=== PATIENT | female | born 1965 | race African-American/Black ===

== ENCOUNTER 2018-12-08 07:39 | Outpatient (CLI) | payer MEDICARE, MEDICAID ==
[2018-12-08 10:31] LABS: Hemoglobin 12.1 g/dL (12.0-16.0); Mean Corpuscular HGB CONC 33.4 g/dL (32.0-36.0); Mean Corpuscular Hemoglobin 30.4 pg (27.0-31.0); Mean Corpuscular Volume 90.8 fL (78.0-98.0); Platelet Count 261 thou/uL (130-400); RBC Distribution Width 12.8 % (11.5-14.5); Red Blood Cell (RBC) Count 3.98 mill/uL (4.20-5.40); White Blood Cell (WBC) Count 6.1 thou/uL (4.8-10.8)
[2018-12-08 10:35] LABS: Prothrombin Time 13.4 SEC (12.0-14.7)
[2018-12-08 10:51] LABS: Anion Gap 12 mmol/L (10-20); BUN (Urea Nitrogen) 17 mg/dL (9.8-20.1); Calc. Creatinine Clearance 0 mL/min (70-130); Calcium 9.2 mg/dL (7.8-10.44); Carbon Dioxide 30 mmol/L (22-29); Chloride 102 mmol/L (98-107); Estimated GFR-MDRD 70; Glucose 119 mg/dL (70-105); Potassium 3.9 mmol/L (3.5-5.1); Sodium 140 mmol/L (136-145)
--- NOTE | 2018-12-08 17:07 | EKG ---
Test Reason : Blood Pressure : / mmHG Vent. Rate : 065 BPM Atrial Rate : 065 BPM P-R Int : 172 ms QRS Dur : 080 ms QT Int : 434 ms P-R-T Axes : 043 -09 -04 degrees QTc Int : 451 ms Normal sinus rhythm Nonspecific ST-T changes No previous ECGs available Confirmed by DR. Zarina HAAS (3) on 12/08/2018 5:07:18 PM Referred By: DA Confirmed By:DR. Zarina HAAS
== END 2018-12-08 07:40 | disposition home or self-care (01) ==
LOC: LABBT 07:39
PROVIDERS: ATTEND Orthopaedic Surgery
DX: Z01.818 Encounter for other preprocedural examination (principal); M16.11 Unilateral primary osteoarthritis, right hip
CPT/HCPCS: 80048; 85027; 85610; 87081; 93005; 93010

== ENCOUNTER 2018-12-08 13:30 | Inpatient (IN) | payer MEDICARE, MEDICAID ==
[2018-12-08 08:48] VITALS: BMI 55.2
[2018-12-13] MEDS ORDERED: Fentanyl 250 MCG/5 ML VIAL ONE (06:58)
[2018-12-13] MEDS ORDERED: Midazolam HCl 2 mg/2 ml Vial ONE (06:58)
[2018-12-13] MEDS ORDERED: Fentanyl 100 MCG/2 ML VIAL ONE (06:59)
[2018-12-13] MEDS ORDERED: Lidocaine 1% PF 5 ML VIAL ONE (07:01)
[2018-12-13] MEDS ORDERED: Lidocaine 1.5% w/Epi 1:200K 30 ML VIAL (Epid Use) ONE (07:01)
[2018-12-13] MEDS ORDERED: Dextrose 50% Abboject 50 ML SYRINGE ONE (07:05)
[2018-12-13] MEDS ORDERED: CEFAZOLIN 2 GM/50 ML BAG ONE ×2 (07:25→15:43)
[2018-12-13] MEDS ORDERED: Acetaminophen 1,000 MG in Premix Bag 1 BAG IVPB PRN ×2 (07:44→10:39)
[2018-12-13] MEDS ORDERED: Hydrocerin (Eucerin) Cream 120 gm Jar TOP PRN ×2 (07:45→10:45)
[2018-12-13] MEDS ORDERED: Promethazine HCl 25 MG SUPP PR PRN ×2 (07:45→10:45)
[2018-12-13] MEDS ORDERED: HYDROcodone/Acetaminophen 5/325 mg Tablet PO PRN ×4 (07:45→10:45)
[2018-12-13] MEDS ORDERED: Zolpidem Tartrate 5 MG TAB PO PRN ×3 (07:45→10:45)
[2018-12-13] MEDS ORDERED: Promethazine HCl 25 MG/ML VIAL IM PRN ×4 (07:45→10:45)
[2018-12-13] MEDS ORDERED: Naloxone HCl 0.4 mg/ml Vial IV PRN ×2 (07:45→10:45)
[2018-12-13] MEDS ORDERED: Fentanyl/Bupivacaine 100 ML EPIDURAL SCH (07:45)
[2018-12-13] MEDS ORDERED: Naloxone HCl 0.4 mg/ml Vial IVP PRN ×2 (07:45→10:45)
[2018-12-13] MEDS ORDERED: diphenhydrAMINE 50 MG/ML VIAL IM PRN ×2 (07:45→10:45)
[2018-12-13] MEDS ORDERED: traMADol HCl 50 MG TAB PO PRN ×4 (07:45→10:45)
[2018-12-13] MEDS ORDERED: diphenhydrAMINE 25 MG CAP PO PRN ×3 (07:45→10:45)
[2018-12-13] MEDS ORDERED: diphenhydrAMINE 50 MG/ML VIAL IVP PRN ×2 (07:45→10:45)
[2018-12-13] MEDS ORDERED: Ondansetron PF 4 MG/2 ML Vial IVP PRN ×3 (07:45→10:45)
[2018-12-13] MEDS ORDERED: Neomycin-Polymyxin 1 ML AMP ONE (08:14)
[2018-12-13] MEDS ORDERED: Ondansetron HCl/PF 4 MG/2 ML Vial IVP PRN (08:47)
[2018-12-13] MEDS ORDERED: Ketorolac Tromethamine 30 MG/ML VIAL IVP PRN (08:47)
[2018-12-13] MEDS ORDERED: Meperidine HCl/PF 25 MG/ML VIAL SLOW IVP PRN (08:47)
[2018-12-13] MEDS ORDERED: Acetaminophen 325 MG TAB PO PRN (10:05)
[2018-12-13] MEDS ORDERED: HYDROcodone/Acetaminophen 10/325 mg Tablet PO PRN ×2 (10:05)
[2018-12-13] MEDS ORDERED: Morphine 4 MG/ML VIAL SLOW IVP PRN (10:05)
[2018-12-13] MEDS ORDERED: CEFAZOLIN/Water 2 GM/20 ML SYRINGE SLOW IVP SCH (10:15)
[2018-12-13] MEDS ORDERED: Bupivacaine 0.25% 10 ML VIAL EPIDURAL PRN (10:45)
--- NOTE | 2018-12-13 11:46 | OP ---
DATE OF PROCEDURE: 12/13/2018 PREOPERATIVE DIAGNOSIS: Severe arthritis, right hip. POSTOPERATIVE DIAGNOSIS: Severe arthritis, right hip. PROCEDURE PERFORMED: Right total hip replacement. ANESTHESIA: General. TECHNIQUE: The patient was given preoperative IV antibiotics, taken to the operating room, placed in supine position. Satisfactory general anesthesia was performed. The patient was then placed in the left lateral decubitus position. All bony prominences were well padded. The right hip and lower extremity were sterilely prepped and draped in usual fashion. Longitudinal incision was made centered over the greater trochanter, and an anterior lateral approach was made to the hip joint. The anterior capsule was excised. There was some loose fragments of bone that were removed. The hip was noted to be very arthritic. It was dislocated and the femoral head was removed. It was devoid of any articular cartilage and was severely deformed. The labrum was excised circumferentially from the glenoid and the acetabulum was then sequentially reamed up to 54 mm. A DePuy pinnacle 56 mm acetabular shell was then impacted into place and two 6.5 cancellous bone screws were used for additional stability of the acetabulum. A 10-degree acetabular liner was impacted and locked into the acetabular shell. Attention was then turned to the proximal femur, where a box osteotome was used, then a hand Charnley reamer and then it was sequentially reamed into the canal up to a 12 and then sequentially rasped up to a 12. Trials were inserted and the patient had excellent stability and good range of motion with the 36-mm femoral head, +1.5 neck. The trials were removed. The hip joint was copiously irrigated with antibiotic solution using the high-speed logistics clerk and the prosthesis was then inserted. The Corail cementless size 12 femoral stem was impacted into the proximal femur and the +1.5 neck with a 36 mm head was placed over the proximal femur and was then reduced. The hip was placed through range of motion, it was very stable. The wound again was then copiously irrigated with antibiotic solution using the high-speed logistics clerk and was closed using #2 Vicryl for the anterior abductor muscles, #2 Vicryl for the iliotibial band, 0 Vicryl for the fat and subcutaneous tissue, and the skin was closed with skin alannah. Sterile dressing was applied. The patient was placed in the supine position. She was awakened, extubated, and transferred to recovery room in stable condition. ESTIMATED BLOOD LOSS: 300 mL. COMPLICATIONS: None. Job ID: [id number]
[2018-12-13] MEDS ORDERED: Ketorolac Tromethamine 30 MG/ML VIAL IVP SCH (12:00)
--- NOTE | 2018-12-13 12:15 | RAD ---
TWO VIEWS RIGHT HIP: Date: 12-13-18 History: Right total hip replacement. Comparison: None available. FINDINGS: Post-surgical changes related to right total hip prosthesis are noted. Two screws are within the acet abular component. The most lateral screw appears to be just lateral to the lateral cortex of the righ t iliac bone. There is otherwise no hardware complication seen. No fracture is identified. There is n o evidence of dislocation. Surgical clips are seen lateral to the right hip. There is subcutaneous em physema related to post-surgical changes. IMPRESSION: Post-surgical change related to right total hip prosthesis. The most lateral screw extends just later al to the lateral cortex of the right iliac bone. This finding was discussed with the ordering physic yenni on 12-13-18 at 1047 hours. POS: SIRISHA
[2018-12-13] MEDS ORDERED: Succinylcholine Chloride 20 MG/ML 10 ml SYRINGE FS ONE (13:45)
[2018-12-13] MEDS ORDERED: Rocuronium Bromide 10 MG/ML (10ML VIAL) ONE (13:45)
[2018-12-13] MEDS ORDERED: PROPOFOL 200 MG/20 ML VIAL ONE (13:45)
[2018-12-13] MEDS ORDERED: ePHEDrine/0.9% NaCl/PF SYRINGE 50 mg/10 ml ONE (13:45)
[2018-12-13] MEDS ORDERED: Ondansetron PF 4 MG/2 ML Vial ONE (13:45)
[2018-12-13] MEDS ORDERED: Ketorolac Tromethamine 30 MG/ML VIAL ONE (14:13)
[2018-12-13] MEDS: Ketorolac Tromethamine 30 MG/ML VIAL IVP SCH ×2 (17:24→17:57)
[2018-12-13] MEDS: metFORMIN 500 MG TAB PO SCH (17:57)
[2018-12-13] MEDS: CEFAZOLIN 2 GM/50 ML-DEXTROSE 2 GM in Premix Bag 1 BAG IVPB SCH (17:57)
[2018-12-13] MEDS ORDERED: Dextrose 5% in Water 1,000 ML IV PRN (18:16)
[2018-12-13] MEDS ORDERED: HumaLOG 300 UNITS/3 ML VIAL SC PRN ×2 (18:16)
[2018-12-13] MEDS ORDERED: Dextrose 50% Abboject 50 ML SYRINGE SLOW IVP PRN (18:16)
[2018-12-13] MEDS ORDERED: Sodium Chloride 0.9% 500 ML IVPB SCH (20:15)
[2018-12-13] MEDS: Aspirin 81 mg Enteric Coated Tablet PO SCH (20:49)
[2018-12-13] MEDS: Atorvastatin Calcium 10 MG TAB PO SCH (20:49)
[2018-12-13] MEDS: Insulin Glargine 45 UNITS in Pre-Filled Syringe 1 EACH SC SCH (20:51)
[2018-12-13] MEDS: Metoprolol Tartrate 25 MG TAB PO SCH (20:52)
[2018-12-13] MEDS ORDERED: Non-Formulary Item 1 EACH (Insulin Glargine,Hum.Rec.Anlog [Lantus Solostar] 45 UNIT) SQ SCH (21:00)
[2018-12-13] MEDS ORDERED: Sodium Chloride 0.9% 1,000 ML IV SCH (23:45)
[2018-12-14] MEDS: CEFAZOLIN 2 GM/50 ML-DEXTROSE 2 GM in Premix Bag 1 BAG IVPB SCH (00:08)
[2018-12-14] MEDS: Ketorolac Tromethamine 30 MG/ML VIAL IVP SCH ×4 (00:09→17:02)
[2018-12-14] MEDS: Fentanyl/Bupivacaine 100 ML EPIDURAL SCH ×2 (00:13→14:50)
[2018-12-14 00:16] LABS: #Basophils 0.1 thou/uL (0.0-0.2); #Eosinphils 0.1 thou/uL (0.0-0.7); #Lymphocytes 2.6 thou/uL (1.20-3.40); #Monocytes 0.9 thou/uL (0.11-0.59); #Neutrophils 3.5 thou/uL (1.40-6.50); %Basophils 0.8 % (0.0-1.0); %Eosinophils 1.4 % (0.0-10.0); %Lymphocytes 36.8 % (21.0-51.0); %Monocytes 12.2 % (0.0-10.0); %Neutrophils 48.7 % (42.0-75.0); Mean Corpuscular HGB CONC 32.8 g/dL (32.0-36.0); Mean Corpuscular Hemoglobin 30.4 pg (27.0-31.0); Mean Corpuscular Volume 92.6 fL (78.0-98.0); Platelet Count 194 thou/uL (130-400); Red Blood Cell (RBC) Count 2.95 mill/uL (4.20-5.40); White Blood Cell (WBC) Count 7.1 thou/uL (4.8-10.8)
[2018-12-14 00:35] LABS: Anion Gap 10 mmol/L (10-20); BUN (Urea Nitrogen) 14 mg/dL (9.8-20.1); Calc. Creatinine Clearance 157 mL/min (70-130); Calcium 7.8 mg/dL (7.8-10.44); Carbon Dioxide 26 mmol/L (22-29); Chloride 101 mmol/L (98-107); Estimated GFR-MDRD 70; Glucose 100 mg/dL (70-105); Potassium 3.7 mmol/L (3.5-5.1); Sodium 133 mmol/L (136-145)
--- NOTE | 2018-12-14 01:13 | CON ---
DATE OF CONSULTATION: PRIMARY CARE PHYSICIAN: Seen by Rosario Palacios Advanced Nurse Practitioner in [place], [place]. . PRIMARY TEAM: Orthopedics, Dr. Reddy. REASON FOR CONSULTATION: Medical management. HISTORY OF PRESENT ILLNESS: This is a 53-year-old Afro-[place] female with a history of severe right hip arthritis, who comes in for total hip replacement. She had that done earlier today and is doing well postoperatively. The patient has no complaints. She is accompanied by her sister, Carie and Cedrick in the room. PAST MEDICAL HISTORY: 1. Adult onset diabetes mellitus, insulin dependent. 2. Hypertension. 3. Hyperlipidemia. 4. Paroxysmal SVT, last episode in 2009. 5. Previous renal failure, resolved. 6. Leaky heart valve. PAST SURGICAL HISTORY: 1. Hysterectomy. 2. Left ankle surgery. PSYCHIATRIC HISTORY: Schizophrenia. SOCIAL HISTORY: The patient is disabled. She does have some impairment of her mental functions. She lives in a fci. Her siblings are her bazzi of check weigher and help her to make her medical decisions. FAMILY HISTORY: Dad with hypertension and ruptured cerebral aneurysm. Mother is of a cerebral aneurysm. Multiple family members with hypertension and diabetes. ALLERGIES: NO KNOWN DRUG ALLERGIES. CURRENT MEDICATIONS: 1. Abilify 10 mg daily. 2. Cetirizine 10 mg daily. 3. Vitamin D3 1000 units daily. 4. Escitalopram oxalate 20 mg daily. 5. Lantus 45 units each night. 6. Metformin 500 mg twice a day. 7. Metoprolol tartrate 25 mg at night and 50 mg in the morning. 8. Potassium chloride 8 mEq daily. 9. Pravastatin 40 mg at night. REVIEW OF SYSTEMS: CONSTITUTIONAL: No fevers, no chills. EYES: No double vision or blurred vision. ENT: No congestion, drainage, or sore throat. PULMONARY: No coughing or wheezing. CARDIOVASCULAR: No chest pain or palpitations. GASTROINTESTINAL: No abdominal pain. No nausea or vomiting. No diarrhea or constipation. GENITOURINARY: No dysuria or hematuria. MUSCULOSKELETAL: No muscle aches or joint pains. She did have the right hip replacement and is doing well postoperatively from that. SKIN: No rashes or lesions noted. NEUROLOGIC: No numbness, tingling, or focal weakness. PHYSICAL EXAMINATION: VITAL SIGNS: Blood pressure 125/84, pulse 66, respirations 20, O2 saturation 96% on 2 L, temperature 98.3. GENERAL: This is a well-developed, obese female, in no acute distress. HEENT: Pupils are equal, round, and reactive to light. Oropharynx clear without lesions, erythema, or exudate. NECK: Supple. No lymphadenopathy. No thyroid nodules or enlargement. No JVD. HEART: Regular rate and rhythm. No murmurs, rubs, or gallops. LUNGS: Clear to auscultation bilaterally. No wheezes, crackles, or rhonchi. ABDOMEN: Soft, obese, nontender to palpation. Normoactive bowel sounds. No hepatosplenomegaly or other masses. EXTREMITIES: No clubbing, cyanosis, or edema. She has a postoperative dressing over her right hip. SKIN: No rashes or lesions noted. NEUROLOGIC: She is able to move all extremities equally and has no facial droop. LABORATORY DATA: CBC within normal limits. Coagulation profile normal. Complete metabolic panel is notable only for a carbon dioxide of 30 and a glucose of 119. ASSESSMENT: 1. Severe right hip arthritis status post right total hip replacement. 2. Diabetes mellitus type 2, insulin dependent. We will resume patient's Lantus, check fingerstick blood sugars q.a.c. and h.s., and give a moderate insulin sliding scale. 3. Hypertension. We will resume the patient's home medications. 4. Paroxysmal supraventricular tachycardia. We will resume the patient's metoprolol and monitor for vital signs abnormality. 5. Hyperlipidemia. We will resume the patient's statin. 6. Schizophrenia. We will resume patient's home medication. 7. Deep venous thrombosis prophylaxis. SCDs to bilateral lower extremities. CODE STATUS: The patient is a full code. Should she be incapacitated, her medical decision maker is Carie Hardin, her sister. Job ID: [id number]
[2018-12-14 07:25] LABS: Hemoglobin 8.6 g/dL (12.0-16.0); Mean Corpuscular Hemoglobin 30.6 pg (27.0-31.0); Mean Corpuscular Volume 92.6 fL (78.0-98.0); Mean Platelet Volume 8.8 fL (7.4-10.4); Platelet Count 192 thou/uL (130-400); Red Blood Cell (RBC) Count 2.81 mill/uL (4.20-5.40); White Blood Cell (WBC) Count 6.5 thou/uL (4.8-10.8)
[2018-12-14] MEDS: Potassium Chloride 8 MEQ TAB PO SCH (08:21)
[2018-12-14] MEDS: Senokot S 8.6-50 MG TAB PO SCH ×2 (08:21→21:15)
[2018-12-14] MEDS: Aripiprazole 10 MG TAB PO SCH (08:21)
[2018-12-14] MEDS: Loratadine 10 MG TAB PO SCH (08:22)
[2018-12-14] MEDS: Ferrous Gluconate 324 MG TAB PO SCH ×2 (08:22→17:01)
[2018-12-14] MEDS: Multivitamin W/ Minerals 1 TAB PO SCH (08:22)
[2018-12-14] MEDS: metFORMIN 500 MG TAB PO SCH ×2 (08:22→17:01)
[2018-12-14] MEDS: Escitalopram Oxalate 20 mg Tablet PO SCH (08:22)
[2018-12-14] MEDS: Metoprolol Tartrate 50 MG TAB PO SCH (08:25)
[2018-12-14] MEDS: Aspirin 81 mg Enteric Coated Tablet PO SCH ×2 (09:22→21:15)
--- NOTE | 2018-12-14 15:22 | PDOC.PN ---
- Subjective Encounter Start Date: 12/14/18 Encounter Start Time: 09:00 Pt seen for followup re: dm2. Says she feels well, no complaints today. - Objective Resuscitation Status - Order Detail: 12/13/18 18:17 Resuscitation Status Routine Resuscitation Status: FULL: Full Resuscitation MAR Reviewed: Yes Vital Signs & Weight: Vital Signs (12 hours) Temp Pulse Resp BP BP BP BP 12/14/18 10:23 98.1 F 71 18 88/61 L 12/14/18 08:55 96/59 L 12/14/18 08:45 12/14/18 08:00 12/14/18 07:23 98.5 F 65 18 96/60 12/14/18 07:12 12/14/18 06:02 92/58 L 12/14/18 04:09 98.9 F 70 18 102/63 Pulse Ox Pulse Ox 12/14/18 10:23 96 12/14/18 08:55 93 L 12/14/18 08:45 93 L 12/14/18 08:00 98 12/14/18 07:23 98 12/14/18 07:12 96 12/14/18 06:02 12/14/18 04:09 96 Weight Admit Weight 342 lb Weight 342 lb I&O: 12/13/18 12/14/18 12/15/18 06:59 06:59 06:59 Intake Total 3915 Output Total 1350 Balance 2565 Result Diagrams: 12/14/18 06:07 12/14/18 00:07 Additional Labs: Accuchecks 12/14/18 12/14/18 12/13/18 10:21 05:57 20:47 POC Glucose 112 H 72 129 H 12/13/18 17:16 POC Glucose 70 labs reviewed by me Phys Exam - Physical Examination Morbid obesity HEENT: moist MMs Neck: supple Respiratory: clear to auscultation bilateral Cardiovascular: RRR Gastrointestinal: soft s/p R hip surgery Neurological: moves all 4 limbs Psychiatric: normal affect Dx/Plan (1) DM2 (diabetes mellitus, type 2) Status: Chronic Comment: controlled (2) HTN (hypertension) Code(s): I10 - ESSENTIAL (PRIMARY) HYPERTENSION Status: Chronic Comment: Pt' s blood pressure is low. Hold antihypertensives. (3) Mild depression Code(s): F32.0 - MAJOR DEPRESSIVE DISORDER, SINGLE EPISODE, MILD Status: Chronic Comment: stable - Plan * . Review of Systems - Review of Systems Cardiovascular: negative: chest pain, palpitations, orthopnea, paroxysmal nocturnal dyspnea, edema, light headedness Gastrointestinal: negative: Nausea, Vomiting, Abdominal Pain, Diarrhea, Constipation, Melena, Hematochezia - Medications/Allergies Allergies/Adverse Reactions: Allergies Allergy/AdvReac Type Severity Reaction Status Date / Time No Known Allergies Allergy Unverified 12/08/18 08:49 Medications: Current Medications Acetaminophen (Tylenol) 650 mg PO Q4H PRN PRN Reason: Headache/Fever or Pain Hydrocodone Bitart/Acetaminophen (Lorain 5/325) 1 tab PO Q4H PRN PRN Reason: Mild Pain 0-3 Hydrocodone Bitart/Acetaminophen (Lorain 5/325) 2 tab PO Q4H PRN PRN Reason: For Moderate Pain 4-6 Aripiprazole (Abilify) [address] [facility] Last Admin: 12/14/18 08:21 Dose: 10 mg Aspirin (Ecotrin) 81 mg PO BID [facility] Last Admin: 12/14/18 09:22 Dose: 81 mg Atorvastatin Calcium (Lipitor) 10 mg PO [facility] Last Admin: 12/13/18 20:49 Dose: 10 mg Cholecalciferol (Vitamin D3) 1,000 units PO DAILY [facility] Last Admin: 12/14/18 08:21 Dose: 1,000 units Dextrose/Water (Dextrose 50%) 25 gm SLOW IVP PRN PRN PRN Reason: Hypoglycemia Diphenhydramine HCl (Benadryl) 25 mg PO Q3H PRN PRN Reason: Itching Last Admin: 12/13/18 17:57 Dose: 25 mg Diphenhydramine HCl (Benadryl) 25 mg IM Q3H PRN PRN Reason: Itching Diphenhydramine HCl (Benadryl) 25 mg IVP Q3H PRN PRN Reason: Itching Emollient Cream (Hydrocerin Cream) 0 gm TOP PRN PRN PRN Reason: Itching [facility]italopram [facility] ([facility]ro) [facility] Last Admin: 12/14/18 08:22 Dose: 20 mg Ferrous [facility]) [facility] Last Admin: 12/14/18 08:22 Dose: 324 mg Glucagon (Glucagon) 1 mg IM PRN PRN PRN Reason: Hypoglycemia Fentanyl Citrate (Fentanyl/Bupivacaine) 100 mls @ 0 mls/hr EPIDURAL INF [facility] Last Admin: 12/14/18 14:50 Dose: 100 mls Insulin Glargine 45 units/ (Miscellaneous Medication) 0.45 mls @ 0 mls/hr SC QPM [facility] Last Admin: 12/13/18 20:51 Dose: Not Given Dextrose/Water (D5w) 1,000 mls @ 0 mls/hr IV .Q0M PRN PRN Reason: Hypoglycemia Insulin Human Lispro (Humalog) 0 units SC .MODERATE SLIDING SC PRN PRN Reason: Moderate Correctional Scale Insulin Human Lispro (Humalog) 0 units SC .BEDTIME SLIDING SC PRN PRN Reason: Bedtime Correctional Scale Iron/Minerals/Multivitamins (Theragran M) 1 tab PO DAILY [facility] Last Admin: 12/14/18 08:22 Dose: 1 tab Ketorolac Tromethamine (Toradol) 30 mg IVP Q6HR [facility] Stop: 12/15/18 06:01 Last Admin: 12/14/18 11:44 Dose: 30 mg Loratadine (Claritin) 10 mg PO DAILY [facility] Last Admin: 12/14/18 08:22 Dose: 10 mg Metformin HCl (Glucophage) 500 mg PO BID-[facility] Last Admin: 12/14/18 08:22 Dose: 500 mg Metoprolol Tartrate (Lopressor) 25 mg PO [facility] Last Admin: 12/13/18 20:52 Dose: Not Given Metoprolol Tartrate (Lopressor) [address] [facility] Last Admin: 12/14/18 08:25 Dose: Not Given Miscellaneous Information (Communication Order-Pharmacy) 1 each FS ASDIR [facility] Naloxone HCl (Narcan) 0.2 mg IV Q5MIN PRN PRN Reason: RR <=8 OR OBTUNDED/UNAROUSABLE Naloxone HCl (Narcan) 0.1 mg IVP Q15MIN PRN PRN Reason: URINARY RETENTION Ondansetron HCl (Zofran) 4 mg IVP Q6H PRN PRN Reason: Nausea/Vomiting Potassium Chloride (Slow-K 8 Meq) 8 meq PO QAM-[facility] Last Admin: 12/14/18 08:21 Dose: 8 meq Promethazine HCl (Phenergan) 12.5 mg IM Q4H PRN PRN Reason: Nausea/Vomiting Promethazine HCl (Phenergan Suppository) 25 mg AR Q4H PRN PRN Reason: Nausea/Vomiting Senna/Docusate Sodium (Senokot S) 2 tab PO BID [facility] Last Admin: 12/14/18 08:21 Dose: 2 tab Sodium Chloride (Flush - Normal Saline) 10 ml IVF PRN PRN PRN Reason: Saline Flush Tramadol HCl (Ultram) 50 mg PO Q6H PRN PRN Reason: Mild Pain 1-3 Tramadol HCl (Ultram) 100 mg PO Q6H PRN PRN Reason: Moderate Pain 4-6 Zolpidem Tartrate (Ambien) 5 mg PO HSPRN PRN PRN Reason: Insomnia
[2018-12-14] MEDS: Atorvastatin Calcium 10 MG TAB PO SCH (21:15)
[2018-12-14] MEDS: Metoprolol Tartrate 25 MG TAB PO SCH (21:16)
[2018-12-14] MEDS: Insulin Glargine 45 UNITS in Pre-Filled Syringe 1 EACH SC SCH (21:26)
[2018-12-15] MEDS: Ketorolac Tromethamine 30 MG/ML VIAL IVP SCH ×2 (00:18→05:46)
--- NOTE | 2018-12-15 03:26 | PRG ---
DATE OF SERVICE: 12/14/2018 The patient is 1-day status post right total hip replacement. The patient's blood pressure was little low and she was bolused with fluids, which helped bring it out. She also had an episode where her O2 saturation was low last night, but this sosa up into the high 90s with incentive spirometry. The patient has been up with physical therapy and has been ambulating in the neal and is doing well with that. Vital signs, the patient has been afebrile. Pulse 65, respiratory rate 18, blood pressure 96/70, O2 saturation 98% on 2 L per nasal cannula. The patient's blood work shows hemoglobin 8.6, hematocrit 26. Her chemistries showed sodium of 133, which was mildly low. Rest of the values were normal. Glucose has been only slightly elevated with the last glucose 112. The patient is progressing with physical therapy well. She will continue increasing her activities as tolerated. The hospitalists have been monitoring her medical status as far as her diabetes and respiratory. She will continue to increase her activities as tolerated. Job ID: [id number]
[2018-12-15] MEDS: Fentanyl/Bupivacaine 100 ML EPIDURAL SCH (05:54)
[2018-12-15 07:32] LABS: Hemoglobin 7.7 g/dL (12.0-16.0); Mean Corpuscular HGB CONC 33.2 g/dL (32.0-36.0); Mean Corpuscular Hemoglobin 30.9 pg (27.0-31.0); Mean Corpuscular Volume 92.9 fL (78.0-98.0); Mean Platelet Volume 8.7 fL (7.4-10.4); Platelet Count 163 thou/uL (130-400); RBC Distribution Width 12.9 % (11.5-14.5); White Blood Cell (WBC) Count 7.6 thou/uL (4.8-10.8)
[2018-12-15] MEDS: Aspirin 81 mg Enteric Coated Tablet PO SCH (08:12)
[2018-12-15] MEDS: metFORMIN 500 MG TAB PO SCH ×2 (08:12→17:51)
[2018-12-15] MEDS: Ferrous Gluconate 324 MG TAB PO SCH ×2 (08:12→17:51)
[2018-12-15] MEDS: Escitalopram Oxalate 20 mg Tablet PO SCH (08:12)
[2018-12-15] MEDS: Aripiprazole 10 MG TAB PO SCH (08:12)
[2018-12-15] MEDS: Loratadine 10 MG TAB PO SCH (08:12)
[2018-12-15] MEDS: Multivitamin W/ Minerals 1 TAB PO SCH (08:12)
[2018-12-15] MEDS: Senokot S 8.6-50 MG TAB PO SCH (08:12)
[2018-12-15] MEDS: Metoprolol Tartrate 50 MG TAB PO SCH (09:43)
[2018-12-15] MEDS: Potassium Chloride 8 MEQ TAB PO SCH (09:44)
[2018-12-15] MEDS ORDERED: HYDROcodone/Acetaminophen 10/325 mg Tablet PO PRN ×2 (12:15)
--- NOTE | 2018-12-15 15:29 | PDOC.PN ---
- Subjective Encounter Start Date: 12/15/18 Encounter Start Time: 08:40 Pt seen for followup re: DM2. Feels well. - Objective Resuscitation Status - Order Detail: 12/13/18 18:17 Resuscitation Status Routine Resuscitation Status: FULL: Full Resuscitation MAR Reviewed: Yes Vital Signs & Weight: Vital Signs (12 hours) Temp Pulse Resp BP Pulse Ox 12/15/18 11:42 98.5 F 74 18 139/81 94 L 12/15/18 07:38 99.6 F 84 16 108/67 94 L 12/15/18 04:35 98.7 F 74 18 99/65 96 Weight Admit Weight 342 lb Weight 342 lb I&O: 12/14/18 12/15/18 12/16/18 06:59 06:59 06:59 Intake Total 3915 1318 Output Total 1350 2100 Balance 2565 -782 Result Diagrams: 12/15/18 07:04 12/14/18 00:07 Additional Labs: Accuchecks 12/15/18 12/14/18 05:51 16:09 POC Glucose 131 H 110 Labs reviewed by me Phys Exam - Physical Examination Constitutional: NAD HEENT: moist MMs Neck: supple Respiratory: clear to auscultation bilateral Cardiovascular: RRR Gastrointestinal: soft Neurological: moves all 4 limbs Psychiatric: normal affect Dx/Plan (1) DM2 (diabetes mellitus, type 2) Status: Chronic Comment: controlled, continue accuchecks and insulin sliding scale (2) HTN (hypertension) Code(s): I10 - ESSENTIAL (PRIMARY) HYPERTENSION Status: Chronic Comment: controlled (3) Mild depression Code(s): F32.0 - MAJOR DEPRESSIVE DISORDER, SINGLE EPISODE, MILD Status: Chronic Comment: stable - Plan * . Awaiting Rehab screen Review of Systems - Review of Systems Cardiovascular: negative: chest pain, palpitations, orthopnea, paroxysmal nocturnal dyspnea, edema, light headedness Gastrointestinal: negative: Nausea, Vomiting, Abdominal Pain, Diarrhea, Constipation, Melena, Hematochezia - Medications/Allergies Allergies/Adverse Reactions: Allergies Allergy/AdvReac Type Severity Reaction Status Date / Time No Known Allergies Allergy Unverified 12/08/18 08:49 Medications: Current Medications Acetaminophen (Tylenol) 650 mg PO Q4H PRN PRN Reason: Headache/Fever or Pain Hydrocodone Bitart/Acetaminophen (Mcconnell 5/325) 1 tab PO Q4H PRN PRN Reason: Mild Pain 0-3 Hydrocodone Bitart/Acetaminophen (Mcconnell 5/325) 2 tab PO Q4H PRN PRN Reason: For Moderate Pain 4-6 Hydrocodone Bitart/Acetaminophen (Mcconnell 10/325) 1 tab PO Q4H PRN PRN Reason: Mild-Moderate Pain (2-5) Hydrocodone Bitart/Acetaminophen (Mcconnell 10/325) 2 tab PO Q4H PRN PRN Reason: Moderate to Severe Pain (6-10) Aripiprazole (Abilify) [facility] [place] Last Admin: 12/15/18 08:12 Dose: 10 mg Aspirin (Ecotrin) 81 mg PO BID [facility] Last Admin: 12/15/18 08:12 Dose: 81 mg Atorvastatin Calcium (Lipitor) 10 mg PO HS [facility] Last Admin: 12/14/18 21:15 Dose: 10 mg Cholecalciferol (Vitamin D3) 1,000 units PO DAILY [facility] Last Admin: 12/15/18 08:12 Dose: 1,000 units Dextrose/Water (Dextrose 50%) 25 gm SLOW IVP PRN PRN PRN Reason: Hypoglycemia Diphenhydramine HCl (Benadryl) 25 mg PO Q3H PRN PRN Reason: Itching Last Admin: 12/13/18 17:57 Dose: 25 mg Diphenhydramine HCl (Benadryl) 25 mg IM Q3H PRN PRN Reason: Itching Diphenhydramine HCl (Benadryl) 25 mg IVP Q3H PRN PRN Reason: Itching Emollient Cream (Hydrocerin Cream) 0 gm TOP PRN PRN PRN Reason: Itching Escitalopram Oxalate (Lexapro) 20 mg PO QAM [facility] Last Admin: 12/15/18 08:12 Dose: 20 mg Ferrous Gluconate (Fergon) 324 mg PO BID[facility] Last Admin: 12/15/18 08:12 Dose: 324 mg Glucagon (Glucagon) 1 mg IM PRN PRN PRN Reason: Hypoglycemia Insulin Glargine 45 units/ (Miscellaneous Medication) 0.45 mls @ 0 mls/hr SC QPM [facility] Last Admin: 12/14/18 21:26 Dose: Not Given Dextrose/Water (D5w) 1,000 mls @ 0 mls/hr IV .Q0M PRN PRN Reason: Hypoglycemia Insulin Human Lispro (Humalog) 0 units SC .MODERATE SLIDING SC PRN PRN Reason: Moderate Correctional Scale Insulin Human Lispro (Humalog) 0 units SC .BEDTIME SLIDING SC PRN PRN Reason: Bedtime Correctional Scale Iron/Minerals/Multivitamins (Theragran M) 1 tab PO DAILY [facility] Last Admin: 12/15/18 08:12 Dose: 1 tab Loratadine (Claritin) 10 mg PO DAILY [facility] Last Admin: 12/15/18 08:12 Dose: 10 mg Metformin HCl (Glucophage) 500 mg PO BID[facility] Last Admin: 12/15/18 08:12 Dose: 500 mg Metoprolol Tartrate (Lopressor) 25 mg PO [facility] Last Admin: 12/14/18 21:16 Dose: Not Given Metoprolol Tartrate (Lopressor) 50 [facility] [place] Last Admin: 12/15/18 09:43 Dose: Not Given Miscellaneous Information (Communication Order-Pharmacy) 1 each FS ASDIR [facility] Naloxone HCl (Narcan) 0.2 mg IV Q5MIN PRN PRN Reason: RR <=8 OR OBTUNDED/UNAROUSABLE Naloxone HCl (Narcan) 0.1 mg IVP Q15MIN PRN PRN Reason: URINARY RETENTION Ondansetron HCl (Zofran) 4 mg IVP Q6H PRN PRN Reason: Nausea/Vomiting Potassium Chloride (Slow-K 8 Meq) 8 meq PO QAM-[facility] Last Admin: 12/15/18 09:44 Dose: 8 meq Promethazine HCl (Phenergan) 12.5 mg IM Q4H PRN PRN Reason: Nausea/Vomiting Promethazine HCl (Phenergan Suppository) 25 mg SD Q4H PRN PRN Reason: Nausea/Vomiting Senna/Docusate Sodium (Senokot S) 2 tab PO BID [facility] Last Admin: 12/15/18 08:12 Dose: 2 tab Sodium Chloride (Flush - Normal Saline) 10 ml IVF PRN PRN PRN Reason: Saline Flush Tramadol HCl (Ultram) 50 mg PO Q6H PRN PRN Reason: Mild Pain 1-3 Tramadol HCl (Ultram) 100 mg PO Q6H PRN PRN Reason: Moderate Pain 4-6 Zolpidem Tartrate (Ambien) 5 mg PO HSPRN PRN PRN Reason: Insomnia
[2018-12-15 17:00] VITALS: BP 149/82; TEMP 98.2
--- NOTE | 2018-12-16 13:59 | DIS ---
DATE OF ADMISSION: 12/13/2018 DATE OF DISCHARGE: 12/15/2018 HISTORY OF PRESENT ILLNESS: Please see admission history and physical. HOSPITAL COURSE: The patient was worked up medically prior to admission, found to be stable for surgery. On the day of admission, the patient was given perioperative IV antibiotics and under general anesthetic, underwent right total hip replacement. The patient had sequential compression devices and started on aspirin for DVT prophylaxis. Her postoperative hemoglobin was 8.6, and postoperative day #2, 7.7. The patient's blood pressure maintained very well and her last blood pressures were 130s/80s. She did have some problem with oxygenation, was on O2 per nasal cannula, which kept her oxygen saturation in the upper 90s. The hospitalist was consulted for her diabetes and hypertension, and she was well controlled with all of her medical problems. Arrangements were made for the patient and she was able to be discharged to rehab for continued physical therapy. Here in the hospital, the patient was able to work with physical therapy and was ambulating with a walker in the neal. The right lower extremity remained neurovascularly intact and the incision was healing well. DISCHARGE DIAGNOSES: 1. Severe arthritis of right hip requiring a total hip replacement. 2. Anemia secondary to expected blood loss from surgery. 3. Insulin-dependent diabetes mellitus, well controlled. 4. Hypertension. 5. Hyperlipidemia. 6. Paroxysmal supraventricular tachycardia. ACTIVITY: The patient will continue to work with physical and occupational therapy and rehab to improve her strength and range of motion of the right hip as well as her gait ability. Job ID: [id number]
== END 2018-12-15 19:21 | DRG 470 ==
LOC: SURG A 12-13 06:00
PROVIDERS: ADMIT Orthopaedic Surgery; ATTEND Orthopaedic Surgery
PROC: 0SR901A Replacement of Right Hip Joint with Metal Synthetic Substitute, Uncemented, Open Approach (ICD-10-PCS; principal; 2018-12-13)
DX: M16.11 Unilateral primary osteoarthritis, right hip (principal); I47.1 Supraventricular tachycardia; E11.9 Type 2 diabetes mellitus without complications; I10 Essential (primary) hypertension; E78.5 Hyperlipidemia, unspecified; F20.9 Schizophrenia, unspecified; F32.9 Major depressive disorder, single episode, unspecified; Z90.710 Acquired absence of both cervix and uterus; Z98.890 Other specified postprocedural states; Z79.899 Other long term (current) drug therapy; Z79.4 Long term (current) use of insulin
CPT/HCPCS: 36415; 36416; 80048; 85025; 85027; C1713; C1776; J1885; J2001; J2250; J2405; J2704; J3010